=== PATIENT | male | born 1960 | race Caucasian/White ===

== ENCOUNTER 2017-09-11 07:09 | Day surgery (SDC) | payer OTHER ==
[2017-09-11] MEDS ORDERED: ZOFRAN ODT4 MG PO (15:55)
[2017-09-11] MEDS ORDERED: PERCOCET 5-3251 EACH PO (15:55)
[2017-09-11] MEDS ORDERED: NEURONTIN300 MG PO (15:55)
[2017-09-11] MEDS ORDERED: MIRALAX17 GM PO (15:55)
== END 2017-09-11 18:50 | disposition home or self-care (01) ==
LOC: CIR.AMB 07:09
DX: K40.20 Bilateral inguinal hernia, without obstruction or gangrene, not specified as recurrent (principal); K42.9 Umbilical hernia without obstruction or gangrene; R59.0 Localized enlarged lymph nodes

== ENCOUNTER 2017-12-29 09:22 | Outpatient (CLI) | payer OTHER ==
[~2017-12-29 09:22] MED LIST: MIRALAX17 GM PO; NEURONTIN300 MG PO; PERCOCET 5-3251 EACH PO; ZOFRAN ODT4 MG PO
== END 2017-12-29 09:43 | disposition home or self-care (01) ==
LOC: SONOGRAMA 09:22
DX: E04.1 Nontoxic single thyroid nodule (principal)